=== PATIENT | female | born 1995 | race Two or more races ===

== ENCOUNTER → 2021-09-01 | Outpatient (CLI) | payer BC ==
[2021-09-02 11:55] LABS: Urine Bacteria FEW /hpf (None Seen); Urine Blood Negative /uL (Negative); Urine Mucus FEW (None Seen); Urine Specific Gravity 1.011 (1.001-1.035); Urine WBC 10 /hpf (0 - 5)
== END | disposition home or self-care (01) ==
LOC: LAB 12:00
PROVIDERS: ATTEND Nurse Practitioner Family
DX: N39.0 Urinary tract infection, site not specified (principal); R30.0 Dysuria
CPT/HCPCS: 81001; 87086

== ENCOUNTER → 2022-01-11 | Outpatient (CLI) | payer BC | END | disposition home or self-care (01) | LOC: LAB 15:39 | PROVIDERS: ATTEND Obstetrics & Gynecology | DX: Z34.80 Encounter for supervision of other normal pregnancy, unspecified trimester (principal); Z3A.00 Weeks of gestation of pregnancy not specified ==

== ENCOUNTER → 2022-03-07 | Outpatient (CLI) | payer BC ==
[2022-03-07 09:59] LABS: Hematocrit 36.2 % (36.0-46.0); Hemoglobin 11.7 g/dL (12.2-16.2); Mean Corpuscular Hemoglobin 28.3 pg (28.0-32.0); Mean Corpuscular Hgb Conc. 32.4 g/dL (32.0-36.0); Mean Corpuscular Volume 87.2 fL (80.0-100.0); Red Blood Cells 4.15 10^6/uL (4.0-5.20); Red Cell Distribution Width 13.2 % (11.8-14.3); White Blood Cell 11.9 10^3/uL (4.4-10.8)
[2022-03-07 10:09] LABS: Basophils % (manual) 0 (0.0-2.0); Blast Cells 0; Eosinophils % (manual) 0 (0-7); Metamyelocytes % 0; Promyelocytes % 0; Reactive Lymphocytes 0
[2022-03-07 11:34] LABS: Band Neutrophils % (manual) 1; Lymphocytes % (manual) 25 (10.0-50.0); Monocytes % (manual) 6 (0-12); Myelocytes % 1
== END | disposition home or self-care (01) ==
LOC: LAB 09:28
PROVIDERS: ATTEND Obstetrics & Gynecology
DX: O99.810 Abnormal glucose complicating pregnancy (principal); Z34.80 Encounter for supervision of other normal pregnancy, unspecified trimester
CPT/HCPCS: 36415; 82951; 83036; 85007; 85027

== ENCOUNTER → 2022-03-15 | Outpatient (CLI) | payer BC | END | disposition home or self-care (01) | LOC: LAB 11:14 | PROVIDERS: ATTEND Obstetrics & Gynecology | DX: Z34.80 Encounter for supervision of other normal pregnancy, unspecified trimester (principal); Z3A.00 Weeks of gestation of pregnancy not specified | CPT/HCPCS: 86850 ==

== ENCOUNTER 2022-03-24 10:33 | Observation (INO) | payer BC | END 2022-03-24 13:20 | disposition home or self-care (01) | LOC: LDRP 10:33 → UNDOADMOB 11:12 → LDRP 11:12 → UNDODISOB 13:20 | PROVIDERS: ADMIT Obstetrics & Gynecology; ATTEND Obstetrics & Gynecology | DX: O24.419 Gestational diabetes mellitus in pregnancy, unspecified control (principal); Z3A.29 29 weeks gestation of pregnancy | CPT/HCPCS: 59025; 76818; 82962; 94760; G0378 ==

== ENCOUNTER 2022-03-28 08:52 | Observation (INO) | payer BC ==
[~2022-03-28] VITALS: Ht 160 cm; Wt 94.3 kg
[2022-03-28] MEDS ORDERED: GLYB1.257 PO (10:19)
== END 2022-03-28 11:30 | disposition home or self-care (01) ==
LOC: LDRP 08:52 → UNDOADMOB 08:52 → LDRP 10:37
PROVIDERS: ADMIT Obstetrics & Gynecology; ATTEND Obstetrics & Gynecology
DX: O24.419 Gestational diabetes mellitus in pregnancy, unspecified control (principal); Z3A.29 29 weeks gestation of pregnancy; Z79.899 Other long term (current) drug therapy
CPT/HCPCS: 59025; 76818; 81002; 82948; 82962; G0378

== ENCOUNTER 2022-03-29 07:41 | Observation (INO) | payer BC ==
[~2022-03-29 07:41] MED LIST: GLYB1.257 PO
== END 2022-03-31 10:00 | disposition home or self-care (01) ==
LOC: UNDOADMOB 03-31 08:07 → LDRP 03-31 08:07
PROVIDERS: ADMIT Obstetrics & Gynecology; ATTEND Obstetrics & Gynecology
DX: O24.415 Gestational diabetes mellitus in pregnancy, controlled by oral hypoglycemic drugs (principal); Z3A.30 30 weeks gestation of pregnancy; Z79.84 Long term (current) use of oral hypoglycemic drugs
CPT/HCPCS: 59025; 76818; 81002; 82948; 82962; 94760; G0378

== ENCOUNTER 2022-04-04 08:19 | Observation (INO) | payer BC ==
[2022-04-04] MEDS ORDERED: PREN-129 PO (09:24)
== END 2022-04-04 09:40 | disposition home or self-care (01) ==
LOC: LDRP 08:19
PROVIDERS: ADMIT Obstetrics & Gynecology; ATTEND Obstetrics & Gynecology
DX: O24.419 Gestational diabetes mellitus in pregnancy, unspecified control (principal); O24.415 Gestational diabetes mellitus in pregnancy, controlled by oral hypoglycemic drugs; Z3A.30 30 weeks gestation of pregnancy; Z79.84 Long term (current) use of oral hypoglycemic drugs
CPT/HCPCS: 59025; 76818; 81002; 82948; 82962; 94760; G0378

== ENCOUNTER 2022-04-07 13:05 | Observation (INO) | payer BC ==
[~2022-04-07 13:05] MED LIST changes: +PREN-129 PO
[2022-04-07] MEDS ORDERED: PREN-96 PO (17:10)
== END 2022-04-07 17:19 | disposition home or self-care (01) ==
LOC: LDRP 16:03 → UNDOADMOB 16:09 → LDRP 16:09
PROVIDERS: ADMIT Obstetrics & Gynecology; ATTEND Obstetrics & Gynecology
DX: O24.419 Gestational diabetes mellitus in pregnancy, unspecified control (principal); Z3A.31 31 weeks gestation of pregnancy
CPT/HCPCS: 59025; 76818; 81002; 82948; 82962; G0378

== ENCOUNTER 2022-04-11 07:16 | Observation (INO) | payer BC ==
[~2022-04-11] VITALS: Ht 160 cm; Wt 94.3 kg
[~2022-04-11 07:16] MED LIST changes: -PREN-129 PO; +PREN-96 PO
== END 2022-04-11 09:44 | disposition still patient (30) ==
LOC: UNDOADMOB 08:03 → LDRP 08:03
PROVIDERS: ADMIT Obstetrics & Gynecology; ATTEND Obstetrics & Gynecology
DX: O24.419 Gestational diabetes mellitus in pregnancy, unspecified control (principal); Z3A.31 31 weeks gestation of pregnancy
CPT/HCPCS: 59025; 76818; 81002; 82948; 82962; G0378

== ENCOUNTER 2022-04-14 08:05 | Observation (INO) | payer BC ==
[2022-04-14] MEDS ORDERED: INSLANTI SC (09:14)
== END 2022-04-14 09:34 | disposition home or self-care (01) ==
LOC: LDRP 08:05 → UNDOADMOB 08:20 → UNDODISOB 09:34
PROVIDERS: ADMIT Obstetrics & Gynecology; ATTEND Obstetrics & Gynecology
DX: O24.419 Gestational diabetes mellitus in pregnancy, unspecified control (principal); Z3A.32 32 weeks gestation of pregnancy
CPT/HCPCS: 59025; 76818; 81002; 82948; 82962; 94760; G0378

== ENCOUNTER 2022-04-18 08:13 | Observation (INO) | payer BC ==
[~2022-04-18 08:13] MED LIST changes: +INSLANTI SC
== END 2022-04-18 16:09 | disposition home or self-care (01) ==
LOC: LDRP 14:08
PROVIDERS: ADMIT Obstetrics & Gynecology; ATTEND Obstetrics & Gynecology
DX: O24.419 Gestational diabetes mellitus in pregnancy, unspecified control (principal); Z3A.32 32 weeks gestation of pregnancy
CPT/HCPCS: 59025; 76818; 81002; 82948; 82962; 94760; G0378

== ENCOUNTER 2022-04-21 08:01 | Observation (INO) | payer BC | END 2022-04-21 09:15 | disposition home or self-care (01) | LOC: LDRP 08:08 → UNDOADMOB 08:08 → LDRP 08:35 → UNDODISOB 09:15 | PROVIDERS: ADMIT Obstetrics & Gynecology; ATTEND Obstetrics & Gynecology | DX: O24.419 Gestational diabetes mellitus in pregnancy, unspecified control (principal); Z3A.33 33 weeks gestation of pregnancy | CPT/HCPCS: 59025; 76818; 81002; 82948; 82962; 94760; G0378 ==